=== PATIENT | female | born 1950 | race Caucasian/White ===

== ENCOUNTER 2022-12-26 18:04 | Outpatient (CLI) | payer MEDICARE, MEDICAID | END 2022-12-26 18:05 | disposition critical access hospital (66) | LOC: EMS 18:04 | DX: R55 Syncope and collapse (principal); I95.9 Hypotension, unspecified; R41.0 Disorientation, unspecified; R39.89 Other symptoms and signs involving the genitourinary system | CPT/HCPCS: A0425; A0427 ==

== ENCOUNTER 2022-12-26 18:21 | Emergency (ER) | payer MEDICARE, MEDICAID ==
[2022-12-26 19:12] LABS: BASOPHILS # (AUTO) 0.1 10^3/uL (0.0-0.1); BASOPHILS % (AUTO) 0.7 %; EOSINOPHILS # (AUTO) 0.1 10^3/uL (0.0-0.7); EOSINOPHILS % (AUTO) 1.6 %; HGB - HEMOGLOBIN 12.7 g/dL (12.0-16.0); LYMPHOCYTES # (AUTO) 2.6 10^3/uL (1.5-3.5); LYMPHOCYTES % (AUTO) 30.9 %; MEAN CORPUSCULAR HEMOGLOBIN 27.9 pg (27.0-31.0); MEAN CORPUSCULAR HGB CONC 31.8 g/dL (32.0-36.0); MEAN CORPUSCULAR VOLUME 87.9 fL (81.0-99.0); MEAN PLATELET VOLUME 8.9 fL (7.9-10.8); MONOCYTES # (AUTO) 0.7 10^3/uL (0.0-1.0); NEUTROPHILS % (AUTO) 58.4 %; PLT - PLATELET COUNT 272 10^3/uL (130-450); RED BLOOD COUNT 4.55 10^6/uL (4.20-5.40); RED CELL DISTRIBUTION WIDTH 13.6 % (12.0-15.0); WHITE BLOOD COUNT 8.5 x10^3/uL (4.8-10.8)
[2022-12-26 19:25] LABS: ALBUMIN 3.6 g/dL (3.2-5.5); ALBUMIN/GLOBULIN RATIO 1.3 (1.0-2.2); BILIRUBIN,TOTAL 0.4 mg/dL (0.2-1.0); CALCIUM 8.7 mg/dL (8.5-10.3); CREATININE 1.2 mg/dL (0.4-1.0); POTASSIUM 3.7 mmol/L (3.5-5.0); TOTAL PROTEIN 6.4 g/dL (6.7-8.2)
--- NOTE | 2022-12-26 19:29 | ED Physician Documentation ---
History of Present Illness - Stated complaint Stated Complaint: SYNCOPE - Chief complaint Chief Complaint: General - History obtained from History obtained from: Patient, EMS - History of Present Illness Timing: Today Pain level max: 0 Pain level now: 0 - Additonal information Additional information: 72-year-old female presents to the emergency department after reported possible syncopal event today at her memory care facility. She has severe dementia and is unable to give any history. Reportedly she was at dinner today and had her head on the table. It was unclear if she had passed out or if she was asleep. Reportedly a blood sugar was checked and it soon as her finger was poked she woke up abruptly. Patient states she does not have any injuries. Denies any history of syncope. No fevers. Patient is unable to give any significant history. Review of Systems Unable to obtain: Dementia PD PAST MEDICAL HISTORY - Past Medical History Past Medical History: Yes Neuro: Dementia - Allergies Allergies/Adverse Reactions: Allergies Allergy/AdvReac Type Severity Reaction Status Date / Time codeine Allergy Unknown Verified 12/26/22 18:38 fentanyl Allergy Unknown Verified 12/26/22 18:38 hydrocodone Allergy Unknown Verified 12/26/22 18:38 lorazepam Allergy Unknown Verified 12/26/22 18:38 morphine Allergy Unknown Verified 12/26/22 18:38 prochlorperazine Allergy Unknown Verified 12/26/22 18:38 tizanidine Allergy Unknown Verified 12/26/22 18:38 PD ED PE NORMAL - Vitals Vital signs reviewed: Yes - General General: No acute distress, Well developed/nourished, Other (Alert, happy, well-appearing) - HEENT HEENT: Atraumatic, PERRL, Moist mucous membranes, Pharynx benign - Neck Neck: Supple, no meningeal sign, No bony TTP - Cardiac Cardiac: RRR, Strong equal pulses - Respiratory Respiratory: No respiratory distress, Clear bilaterally - Abdomen Abdomen: Soft, Non tender, Non distended - Back Back: No spinal TTP - Derm Derm: Warm and dry - Extremities Extremities: No edema, No calf tenderness / cord - Neuro Neuro: unified communications engineer 2-12 intact, No motor deficit, No sensory deficit, Normal speech Eye Opening: Spontaneous Motor: Obeys Commands Verbal: Confused (baseline) GCS Score: 14 - Psych Psych: Normal mood, Normal affect Results - Vitals Vitals: Vital Signs - 24 hr 12/26/22 12/26/22 18:28 20:53 Temperature 98.1 C H Heart Rate 67 73 Respiratory 16 18 Rate Blood Pressure 123/79 120/71 O2 Saturation 97 98 Oxygen O2 Source Room air - EKG (time done) 1831 EKG releavant findings:: EKG personally interpreted by author of this note. Relevant findings are: Rate: Rate (enter#) (81) Rhythm: Atrial fibrillation QRS: Normal Ischemia: Normal ST segments - Labs Labs: Laboratory Tests 12/26/22 12/26/22 12/26/22 18:29 19:07 19:07 WBC 8.5 RBC 4.55 Hgb 12.7 Hct 40.0 MCV 87.9 MCH 27.9 MCHC 31.8 L RDW 13.6 Plt Count 272 MPV 8.9 Neut # (Auto) 5.0 Lymph # (Auto) 2.6 [place] # (Auto) 0.7 Eos # (Auto) 0.1 Baso # (Auto) 0.1 Absolute Nucleated RBC 0.00 Nucleated RBC % 0.0 Sodium 138 Potassium 3.7 Chloride 102 Carbon Dioxide 26 Anion Gap 10.0 BUN 21 H Creatinine 1.2 H Estimated GFR (MDRD) 44 L Glucose 142 H POC Whole Bld Glucose 137 H Calcium 8.7 Total Bilirubin 0.4 AST 18 ALT 15 Alkaline Phosphatase 62 Troponin I High Sens Total Protein 6.4 L Albumin 3.6 Globulin 2.8 Albumin/Globulin Ratio 1.3 Lipase 34 12/26/22 19:07 WBC RBC Hgb Hct MCV MCH MCHC RDW Plt Count MPV Neut # (Auto) Lymph # (Auto) [place] # (Auto) Eos # (Auto) Baso # (Auto) Absolute Nucleated RBC Nucleated RBC % Sodium Potassium Chloride Carbon Dioxide Anion Gap BUN Creatinine Estimated GFR (MDRD) Glucose POC Whole Bld Glucose Calcium Total Bilirubin AST ALT Alkaline Phosphatase Troponin I High Sens 5.1 Total Protein Albumin Globulin Albumin/Globulin Ratio Lipase - Rads (name of study) cxr Relevant Findings:: Final report received, See rad report PD Medical Decision Making - ED course Complexity details: reviewed results, re-evaluated patient, considered differential (No ST elevation [place], no aortic dissection, no PE, no tension pneumothorax, no aortic aneurysm), d/w family ED course: Patient is a 72-year-old female who potentially had a syncopal event earlier today. She may have also been napping at the dinner table. No injuries. Patient is unable to give any history. No acute findings on CBC or chemistry. No old labs are available. EKG is A-fib which is consistent with her history. No focal neurological deficits. Discussed the case with her daughter over the phone. We will have the patient follow-up with her PCP for further care. This document was made in part using voice recognition software. While efforts are made to proofread this document, sound alike and grammatical errors may occur. Departure - Departure Disposition: 01 Home, Self Care Clinical Impression: Syncope Qualifiers: Syncope type: unspecified Qualified Code(s): R55 - Syncope and collapse Condition: Good Instructions: ED Fainting Unkn Cause Follow-Up: [facility] [Provider Group] - Within 1 week Comments: Please follow-up with your primary care provider later this week. It appears that you had an episode of syncope today. The cause of this is unclear. You are in atrial fibrillation which is chronic for you. Your testing here is normal tonight. Your doctor may want to place a Holter monitor or Zio patch to monitor your heart rhythm for any arrhythmias. Please return if you worsen. I spoke with your daughter Kellie murphy. Discharge Date/Time: 12/26/22 20:53
[2022-12-26 20:55] VITALS: BP 120/71
== END 2022-12-26 20:53 | disposition home or self-care (01) ==
LOC: ED 18:21
DX: R55 Syncope and collapse (principal); F03.90 Unspecified dementia, unspecified severity, without behavioral disturbance, psychotic disturbance, mood disturbance, and anxiety
CPT/HCPCS: 36415; 80053; 83690; 84484; 85025; 93005; 99283; 99284

== ENCOUNTER 2022-12-26 21:05 | Outpatient (CLI) | payer MEDICARE, MEDICAID | END 2022-12-26 21:06 | disposition home or self-care (01) | LOC: EMS 21:05 | PROVIDERS: ATTEND Emergency Medicine | DX: R55 Syncope and collapse (principal); I95.9 Hypotension, unspecified; R53.83 Other fatigue; F03.90 Unspecified dementia, unspecified severity, without behavioral disturbance, psychotic disturbance, mood disturbance, and anxiety | CPT/HCPCS: A0425; A0428 ==

== ENCOUNTER 2023-11-27 12:22 | Outpatient (CLI) | payer MEDICARE, MEDICAID | END 2023-11-27 23:59 | disposition critical access hospital (66) | LOC: EMS 12:22 | DX: M25.552 Pain in left hip (principal); Z74.09 Other reduced mobility; W18.39XA Other fall on same level, initial encounter; Y92.099 Unspecified place in other non-institutional residence as the place of occurrence of the external cause | CPT/HCPCS: A0425; A0429 ==

== ENCOUNTER 2023-11-27 12:58 | Emergency (ER) | payer MEDICARE, MEDICAID ==
[2023-11-27 13:24] VITALS: BP 118/77; O2SAT 96
--- NOTE | 2023-11-27 13:53 | ED Physician Documentation ---
PD HPI LOWER EXT INJURY - Stated complaint Stated Complaint: LT HIP PX - Chief complaint Chief Complaint: Ext Problem - History obtained from History obtained from: Patient, EMS - Additional information Additional information: The patient is sent to the emergency department by EMS for chief complaint of hip pain. The patient cannot specify which hip is hurting although the medics report that it is the left hip. The patient apparently took a fall back on November 18 but was able to get up with assistance and then was able to ambulate without difficulty. However, it seems that since then, the patient has complained more and more of pain in that area and so [facility], where she lives, finally sent her in. The patient is not really able to offer any meaningful information as she has advanced dementia. [facility] does not report any further injuries in the fall and patient has otherwise been acting like herself. PD PAST MEDICAL HISTORY - Past Medical History Past Medical History: Yes Cardiovascular: Hypertension, Atrial fibrillation Neuro: Dementia GI: GERD : Incontinence Psych: Anxiety Musculoskeletal: Osteoporosis, Chronic back pain - Present Medications Home Medications: Ambulatory Orders Medication Instructions Recorded Confirmed Cholecalciferol [Vitamin D3] 5,000 unit PO DAILY 11/27/23 11/27/23 Donepezil [Aricept] 10 mg PO DAILY 11/27/23 11/27/23 Loratadine [Claritin] 10 mg PO DAILY 11/27/23 11/27/23 Losartan Potassium 50 mg PO DAILY 11/27/23 11/27/23 Metoprolol Tartrate [Lopressor] 25 mg PO DAILY 11/27/23 11/27/23 Multivit with Iron,Minerals 1 each PO DAILY 11/27/23 11/27/23 [Multivitamins with Iron] Omeprazole 40 mg PO DAILY 11/27/23 11/27/23 Rivaroxaban [Xarelto] 20 mg PO DAILY 11/27/23 11/27/23 amLODIPine [Norvasc] 5 mg PO DAILY 11/27/23 11/27/23 buPROPion HCL [Bupropion Xl] 150 mg PO DAILY 11/27/23 11/27/23 traMADol [Ultram] 50 mg PO BID 11/27/23 11/27/23 - Allergies Allergies/Adverse Reactions: Allergies Allergy/AdvReac Type Severity Reaction Status Date / Time codeine Allergy Unknown Verified 11/27/23 13:16 fentanyl Allergy Unknown Verified 11/27/23 13:16 hydrocodone Allergy Unknown Verified 11/27/23 13:16 lorazepam Allergy Unknown Verified 11/27/23 13:16 morphine Allergy Unknown Verified 11/27/23 13:16 prochlorperazine Allergy Unknown Verified 11/27/23 13:16 tizanidine Allergy Unknown Verified 11/27/23 13:16 - Social History Does the pt smoke?: No Smoking Status: Never smoker Does the pt drink ETOH?: No Does the pt have substance abuse?: No - Immunizations Immunizations are current?: Yes - POLST Patient has POLST: Yes PD ED PE NORMAL - Vitals Vital signs reviewed: Yes - General General: No acute distress, Well developed/nourished, Other (Alert, pleasant) - HEENT HEENT: Atraumatic, PERRL, EOMI, Moist mucous membranes - Neck Neck: Supple, no meningeal sign - Respiratory Respiratory: No respiratory distress - Derm Derm: Normal color, Warm and dry, No rash - Extremities Extremities: No deformity, Other (No shortening or rotation of either lower extremity. Patient has full passive range of motion of her bilateral lower extremities without pain. She does complain of some pain when I push down and put lateral pressure on her pelvis, but cannot specify exactly where it hurts.) - Neuro Neuro: Other (Alert, moving all 4 extremities without difficulty. Knows her name.) - Psych Psych: Normal mood, Normal affect Results - Vitals Vitals: Oxygen O2 Source Room air - Rads (name of study) bilateral hips/pelvis XR Relevant Findings:: Final report received, See rad report (neg) PD Medical Decision Making - ED course Complexity details: reviewed results, re-evaluated patient, considered differential, d/w patient ED course: The patient had very minor findings on physical exam, with full ROM of both hips actively and passively. Given that she had been sent in with report of increased pain with ambulation since her fall, and given that she had some pelvic tenderness, I did order an x-ray series (bilateral hips, since pt was not a clear historian), and this was negative. The pt was able to ambulate and change positions from stretcher to chair without difficulty in the ED. I felt she was stable for d/c home. We have discussed symptomatic management at home, as well as the usual indications for return. Departure - Departure Disposition: 01 Home, Self Care Clinical Impression: Strain of hip Qualifiers: Encounter type: initial encounter Laterality: unspecified laterality Qualified Code(s): S76.019A - Strain of muscle, fascia and tendon of unspecified hip, initial encounter Condition: Stable Instructions: ED Sprain Hip Comments: Tarsha could not tell us which hip was hurting, and both hips had a completely normal exam. We did x-rays of both hips as well as the pelvis and no fracture was identified by the radiologist. Most likely, Tarsha has sprained or strained the tissues associated with 1 or the other of her hips when she fell a couple of weeks ago. There is no evidence of a serious orthopedic injury. You may give her ibuprofen and/or Tylenol as needed for the pain. She may follow-up with her primary doctor as needed. Forms: PCP List Discharge Date/Time: 11/27/23 17:40
--- NOTE | 2023-11-27 14:33 | XRAY Report ---
PROCEDURE: Hips w/Pelvis 2-3V BL INDICATIONS: bilateral hip pain after fall TECHNIQUE: 3 view(s) of the hip were acquired. COMPARISON: None FINDINGS: Bones: No fractures or dislocations. No suspicious bony lesions. The visualized pelvic ring appear s intact. Lumbar fusion is present. Soft tissues: No suspicious soft tissue calcifications or masses. IMPRESSION: Limited lateral view secondary to patient body habitus. No visualized acute fracture or dislocation. However, occult injury cannot be excluded. Recommend kandi rt interval imaging follow-up in 7-10 days as clinically indicated for additional evaluation. Reviewed by: Lucila Andujar MD on 11/27/2023 2:31 PM PST Approved by: Lucila Andujar MD on 11/27/2023 2:31 PM PST Station ID: [id number]
== END 2023-11-27 17:40 | disposition home or self-care (01) ==
LOC: EDUNIT# → EDBD → ED 12:58
DX: S76.012A Strain of muscle, fascia and tendon of left hip, initial encounter (principal); W18.39XA Other fall on same level, initial encounter; I10 Essential (primary) hypertension; I48.91 Unspecified atrial fibrillation; F03.90 Unspecified dementia, unspecified severity, without behavioral disturbance, psychotic disturbance, mood disturbance, and anxiety; M81.0 Age-related osteoporosis without current pathological fracture; Z79.01 Long term (current) use of anticoagulants; Z79.899 Other long term (current) drug therapy
CPT/HCPCS: 99283

== ENCOUNTER 2023-11-27 17:38 | Outpatient (CLI) | payer MEDICARE, MEDICAID | END 2023-11-27 23:59 | disposition home or self-care (01) | LOC: EMS 17:38 | PROVIDERS: ATTEND Emergency Medicine | DX: R41.0 Disorientation, unspecified (principal); F03.90 Unspecified dementia, unspecified severity, without behavioral disturbance, psychotic disturbance, mood disturbance, and anxiety | CPT/HCPCS: A0425; A0428 ==

== ENCOUNTER 2024-01-11 09:55 | Outpatient (CLI) | payer MEDICARE, MEDICAID | END 2024-01-11 23:59 | disposition critical access hospital (66) | LOC: EMS 09:55 | DX: R56.9 Unspecified convulsions (principal); Z79.01 Long term (current) use of anticoagulants | CPT/HCPCS: A0425; A0429 ==

== ENCOUNTER 2024-01-11 10:16 | Emergency (ER) | payer MEDICARE, MEDICAID ==
[2024-01-11 10:36] LABS: BASOPHILS # (AUTO) 0.1 10^3/uL (0.0-0.1); BASOPHILS % (AUTO) 0.8 %; EOSINOPHILS # (AUTO) 0.1 10^3/uL (0.0-0.7); EOSINOPHILS % (AUTO) 1.7 %; HCT - HEMATOCRIT 44.5 % (37.0-47.0); LYMPHOCYTES # (AUTO) 2.3 10^3/uL (1.5-3.5); LYMPHOCYTES % (AUTO) 29.2 %; MEAN CORPUSCULAR HEMOGLOBIN 29.6 pg (27.0-31.0); MEAN CORPUSCULAR HGB CONC 31.5 g/dL (32.0-36.0); MEAN CORPUSCULAR VOLUME 94.1 fL (81.0-99.0); MEAN PLATELET VOLUME 8.8 fL (7.9-10.8); MONOCYTES # (AUTO) 0.6 10^3/uL (0.0-1.0); MONOCYTES % (AUTO) 7.4 %; NEUTROPHILS # (AUTO) 4.7 10^3/uL (1.5-6.6); NEUTROPHILS % (AUTO) 60.4 %; PLT - PLATELET COUNT 247 10^3/uL (130-450); RED BLOOD COUNT 4.73 10^6/uL (4.20-5.40); RED CELL DISTRIBUTION WIDTH 13.5 % (12.0-15.0); WHITE BLOOD COUNT 7.8 x10^3/uL (4.8-10.8)
--- NOTE | 2024-01-11 10:36 | XRAY Report ---
PROCEDURE: Chest 1V INDICATIONS: chest pain TECHNIQUE: One view of the chest was acquired. COMPARISON: None. FINDINGS: Surgical changes and devices: None. Lungs and pleura: No pleural effusions or pneumothorax. Lungs are clear. Mediastinum: Mediastinal contours appear normal. Heart size is normal. Bones and chest wall: No suspicious bony lesions. Overlying soft tissues appear unremarkable. IMPRESSION: No acute pulmonary process noted. Reviewed by: Felix Ruiz MD on 01/11/2024 10:35 AM PDT Approved by: Felix Ruiz MD on 01/11/2024 10:35 AM PDT Station ID: [id number]
--- NOTE | 2024-01-11 10:45 | ED Physician Documentation ---
PD HPI SEIZURE - Stated complaint Stated Complaint: SZ - Chief complaint Chief Complaint: Neuro - History obtained from History obtained from: Family, EMS - History of Present Illness Timing - onset: Today Number of seizures: Single Description of seizure activity: Generalized Injury during seizure: None Associated symptoms: Unknown History of seizures: First seizure Contributing factors: Other (advanced dementia) Similar symptoms before: Has not had sx before Recently seen: Not recently seen - Additional information Additional information: 73-year-old Tarsha Ribera has a history of advanced dementia. This morning she is brought to the hospital by ambulance after staff witnessed a tonic-clonic seizure lasting about 5 minutes. The patient has now returned to her baseline. She is unable to provide any specific history. She does not have a prior history of seizure disorder. She is not able to fully cooperate with an exam. She does not have focal neurodeficit observed. Review of Systems Unable to obtain: Dementia PD PAST MEDICAL HISTORY - Past Medical History Cardiovascular: Hypertension, Atrial fibrillation Neuro: Dementia GI: GERD : Incontinence Psych: Anxiety Musculoskeletal: Osteoporosis, Chronic back pain - Present Medications Home Medications: Ambulatory Orders Medication Instructions Recorded Confirmed Cholecalciferol [Vitamin D3] 5,000 unit PO DAILY 11/27/23 01/11/24 Donepezil [Aricept] 10 mg PO DAILY 11/27/23 01/11/24 Loratadine [Claritin] 10 mg PO DAILY 11/27/23 01/11/24 Losartan Potassium 50 mg PO DAILY 11/27/23 01/11/24 Metoprolol Tartrate [Lopressor] 25 mg PO DAILY 11/27/23 01/11/24 Multivit with Iron,Minerals 1 each PO DAILY 11/27/23 01/11/24 [Multivitamins with Iron] Omeprazole 40 mg PO DAILY 11/27/23 01/11/24 Rivaroxaban [Xarelto] 20 mg PO DAILY 11/27/23 01/11/24 amLODIPine [Norvasc] 5 mg PO DAILY 11/27/23 01/11/24 buPROPion HCL [Bupropion Xl] 150 mg PO DAILY 11/27/23 01/11/24 traMADol [Ultram] 50 mg PO BID 11/27/23 01/11/24 - Allergies Allergies/Adverse Reactions: Allergies Allergy/AdvReac Type Severity Reaction Status Date / Time codeine Allergy Unknown Verified 01/11/24 10:46 fentanyl Allergy Unknown Verified 01/11/24 10:46 hydrocodone Allergy Unknown Verified 01/11/24 10:46 lorazepam Allergy Unknown Verified 01/11/24 10:46 morphine Allergy Unknown Verified 01/11/24 10:46 prochlorperazine Allergy Unknown Verified 01/11/24 10:46 tizanidine Allergy Unknown Verified 01/11/24 10:46 - Social History Does the pt smoke?: No Smoking Status: Never smoker Does the pt drink ETOH?: No Does the pt have substance abuse?: No - Immunizations Immunizations are current?: Yes - POLST Patient has POLST: Yes PD ED PE NORMAL - Vitals Vital signs reviewed: Yes (Hypertensive) - General General: No acute distress, Well developed/nourished, Other (The patient appears cooperative but has a blank stare. She is unable to cooperate with history in any way and she has a difficult time following commands.) - HEENT HEENT: Atraumatic, PERRL, EOMI - Neck Neck: Supple, no meningeal sign, No bony TTP - Cardiac Cardiac: RRR, No murmur - Respiratory Respiratory: No respiratory distress, Clear bilaterally - Abdomen Abdomen: Normal bowel sounds, Soft, Non tender, Non distended, No organomegaly - Back Back: No CVA TTP, No spinal TTP - Derm Derm: Normal color, Warm and dry, No rash - Extremities Extremities: No deformity, No edema - Neuro Neuro: regulatory lead 2-12 intact, No motor deficit, No sensory deficit, Normal speech Eye Opening: Spontaneous Motor: Localizes to Pain Verbal: Confused GCS Score: 13 - Psych Psych: Normal mood, Normal affect Results - Vitals Vitals: Vital Signs - 24 hr 01/11/24 01/11/24 10:21 12:27 Temperature 35.8 C L 36.5 C Heart Rate 89 88 Respiratory 13 14 Rate Blood Pressure 142/92 H 138/88 H O2 Saturation 96 98 Oxygen O2 Source Room air - Labs Labs: Laboratory Tests 01/11/24 01/11/24 01/11/24 10:32 10:32 10:32 WBC 7.8 RBC 4.73 Hgb 14.0 Hct 44.5 MCV 94.1 MCH 29.6 MCHC 31.5 L RDW 13.5 Plt Count 247 MPV 8.8 Neut # (Auto) 4.7 Lymph # (Auto) 2.3 [place] # (Auto) 0.6 Eos # (Auto) 0.1 Baso # (Auto) 0.1 Absolute Nucleated RBC 0.00 Nucleated RBC % 0.0 Sodium 136 Potassium 4.1 Chloride 102 Carbon Dioxide 25 Anion Gap 9.0 BUN 17 Creatinine 0.8 Estimated GFR (MDRD) 70 L Glucose 105 H Lactic Acid 2.7 H Calcium 9.7 Total Bilirubin 0.5 AST 15 ALT 10 Alkaline Phosphatase 77 Total Protein 6.8 Albumin 4.1 Globulin 2.7 Albumin/Globulin Ratio 1.5 Lipase 15 Urine Color Urine Clarity Urine pH Ur Specific [place] Urine Protein Urine Glucose (UA) Urine Ketones Urine Occult Blood Urine Nitrite Urine Bilirubin Urine Urobilinogen Ur Leukocyte Esterase Ur Microscopic Review Urine Culture Comments 01/11/24 11:30 WBC RBC Hgb Hct MCV MCH MCHC RDW Plt Count MPV Neut # (Auto) Lymph # (Auto) [place] # (Auto) Eos # (Auto) Baso # (Auto) Absolute Nucleated RBC Nucleated RBC % Sodium Potassium Chloride Carbon Dioxide Anion Gap BUN Creatinine Estimated GFR (MDRD) Glucose Lactic Acid Calcium Total Bilirubin AST ALT Alkaline Phosphatase Total Protein Albumin Globulin Albumin/Globulin Ratio Lipase Urine Color YELLOW Urine Clarity CLEAR Urine pH 7.5 Ur Specific [place] 1.020 Urine Protein NEGATIVE Urine Glucose (UA) NEGATIVE Urine Ketones NEGATIVE Urine Occult Blood NEGATIVE Urine Nitrite NEGATIVE Urine Bilirubin NEGATIVE Urine Urobilinogen 0.2 (NORMAL) Ur Leukocyte Esterase NEGATIVE Ur Microscopic Review NOT INDICATED Urine Culture Comments NOT INDICATED - Rads (name of study) CT head Relevant Findings:: Prelim report reviewed (Impression: No acute intracranial pathology.), EMP independent interpretation of test Chest Relevant Findings:: Prelim report reviewed (Impression: No acute pulmonary proce ss noted.), EMP independent interpretation of test PD Medical Decision Making - ED course Complexity details: reviewed results, re-evaluated patient, considered differential, d/w family Reviewed Lab Results: We reviewed a complete blood count showing a normal white blood cell count normal pleat hemoglobin hematocrit and platelets with normal indices. Chemistry showed normal electrolytes and normal kidney and liver function. Lactate was elevated at 2.7 a urinalysis was unremarkable. I interpreted these laboratory test to indicate the patient likely has had a seizure as her lactic acid was elevated and there are no other reasons by history or laboratory that she should have an elevated lactate. ED course: Tarsha Ribera with a history of advanced dementia has had a seizure today. We did obtain CT scan of the head and blood work without specific findings. She appears to have recovered spontaneously and is interacting normally with her partner. She does have advanced dementia and she is unable to contribute at all to the history. We will treat the patient conservatively and await a second seizure before attempting treatment. Departure - Departure Disposition: 01 Home, Self Care Clinical Impression: Seizure Condition: Stable Instructions: ED Seizure New Onset Unk Cause Follow-Up: Your, doctor [Other] Comments: Today it looks like Tarsha had a seizure and she had no significant "postictal " period. The postictal period is a period of time after a seizure where someone is unconscious for a period of time a short postictal period usually indicates a more benign seizure. We did not discover the reason for her seizure. When we have a first-time seizure and we do not discover the reason for this we will typically not treat. If she has a second seizure we will consider treatment then. She will need to be on seizure precaution. This includes no bathing in a bathtub no climbing on ladders or roofs no driving. I suspect she is not doing any of these things currently.A follow-up with her primary care doctor is indicated. Forms: PCP List Discharge Date/Time: 01/11/24 12:30
[2024-01-11 10:51] LABS: ALBUMIN 4.1 g/dL (3.2-5.5); ALBUMIN/GLOBULIN RATIO 1.5 (1.0-2.2); BILIRUBIN,TOTAL 0.5 mg/dL (0.2-1.0); CALCIUM 9.7 mg/dL (8.5-10.3); CREATININE 0.8 mg/dL (0.6-1.3); POTASSIUM 4.1 mmol/L (3.5-4.5); TOTAL PROTEIN 6.8 g/dL (6.4-8.9)
--- NOTE | 2024-01-11 10:58 | CT Report ---
PROCEDURE: Head WO INDICATIONS: seizure TECHNIQUE: Noncontrast 4.5 mm thick angled axial sections acquired from the foramen magnum to the vertex. For r adiation dose reduction, the following was used: automated exposure control, adjustment of mA and/or kV according to patient size. COMPARISON: None. FINDINGS: Image quality: Excellent. CSF spaces: Basal cisterns are patent. No extra-axial fluid collections. Ventricles are normal in size and shape. Brain: No midline shift. No intracranial masses or hemorrhage. Yoon-white matter interface is norm al. There is age-related volume loss and mild/mod/severe periventricular white matter change consist ent with small vessel ischemic change. Skull and face: Calvarium and visualized facial bones are intact, without suspicious lesions. Sinuses: Visualized sinuses and mastoids are clear. IMPRESSION: No acute intracranial pathology. Reviewed by: Felix Ruiz MD on 01/11/2024 10:56 AM PDT Approved by: Felix Ruiz MD on 01/11/2024 10:56 AM PDT Station ID: [id number]
[2024-01-11 11:41] LABS: BILIRUBIN,URINE NEGATIVE (NEGATIVE); GLUCOSE, URINE (UA) NEGATIVE (NEGATIVE); KETONES,URINE (UA) NEGATIVE (NEGATIVE); LEUKOCYTE ESTERASE, URINE NEGATIVE (NEGATIVE); NITRITE,URINE NEGATIVE (NEGATIVE); OCCULT BLOOD,URINE NEGATIVE (NEGATIVE); PH,URINE 7.5 PH (5.0-7.5); PROTEIN,URINE NEGATIVE (NEGATIVE); UROBILINOGEN,URINE 0.2 (NORMAL) E.U./dL (NORMAL)
[2024-01-11 11:42] LABS: CLARITY,URINE CLEAR (CLEAR)
[2024-01-11 12:36] VITALS: BP 138/88; O2SAT 98
== END 2024-01-11 12:30 | disposition home or self-care (01) ==
LOC: EDUNIT# → ED 10:16
DX: R56.9 Unspecified convulsions (principal); I10 Essential (primary) hypertension; I48.91 Unspecified atrial fibrillation; F03.90 Unspecified dementia, unspecified severity, without behavioral disturbance, psychotic disturbance, mood disturbance, and anxiety; Z79.01 Long term (current) use of anticoagulants; Z79.899 Other long term (current) drug therapy
CPT/HCPCS: 36415; 80053; 81001; 81003; 83605; 83690; 85025; 87086; 99284

== ENCOUNTER 2024-04-11 11:46 | Outpatient (CLI) | payer MEDICARE, MEDICAID | END 2024-04-11 23:59 | disposition critical access hospital (66) | LOC: EMS 11:46 | DX: R56.9 Unspecified convulsions (principal); I48.91 Unspecified atrial fibrillation; I95.9 Hypotension, unspecified; Z91.81 History of falling | CPT/HCPCS: A0425; A0427 ==

== ENCOUNTER 2024-06-18 11:56 | Outpatient (CLI) | payer MEDICARE, MEDICAID | END 2024-06-18 23:59 | disposition critical access hospital (66) | LOC: EMS 11:56 | DX: S00.83XA Contusion of other part of head, initial encounter (principal); W06.XXXA Fall from bed, initial encounter; Y92.092 Bedroom in other non-institutional residence as the place of occurrence of the external cause; R22.0 Localized swelling, mass and lump, head; I48.91 Unspecified atrial fibrillation; Z79.01 Long term (current) use of anticoagulants | CPT/HCPCS: A0425; A0429 ==

== ENCOUNTER 2024-06-18 12:18 | Emergency (ER) | payer MEDICARE, MEDICAID ==
[2024-06-18 12:41] VITALS: O2SAT 100
--- NOTE | 2024-06-18 12:44 | ED Physician Documentation ---
PD HPI HEAD INJURY - Stated complaint Stated Complaint: GLF - Chief complaint Chief Complaint: Trauma Hd/Nk - History obtained from History obtained from: Family - Additional information Additional information: This is a david 73-year-old woman who is on Xarelto for A-fib. She is demented and history is from her partner Angelita. She presents by ambulance. She lives at [facility] and apparently at some point overnight probably fell and hit her head on the floor. Also has a small bruise on the right knee but has been ambulatory without issue despite that. No history is available from the patient due to her dementia but she is at her "baseline" according to her partner. PD PAST MEDICAL HISTORY - Past Medical History Cardiovascular: Hypertension, Atrial fibrillation Neuro: Dementia GI: GERD : Incontinence Psych: Anxiety Musculoskeletal: Osteoporosis, Chronic back pain - Present Medications Home Medications: Ambulatory Orders Medication Instructions Recorded Confirmed Cholecalciferol [Vitamin D3] 5,000 unit PO DAILY 11/27/23 04/11/24 Donepezil [Aricept] 10 mg PO DAILY 11/27/23 04/11/24 Loratadine [Claritin] 10 mg PO DAILY 11/27/23 04/11/24 Losartan Potassium 50 mg PO DAILY 11/27/23 04/11/24 Metoprolol Tartrate [Lopressor] 25 mg PO DAILY 11/27/23 04/11/24 Multivit with Iron,Minerals 1 each PO DAILY 11/27/23 04/11/24 [Multivitamins with Iron] Omeprazole 40 mg PO DAILY 11/27/23 04/11/24 Rivaroxaban [Xarelto] 20 mg PO DAILY 11/27/23 04/11/24 amLODIPine [Norvasc] 5 mg PO DAILY 11/27/23 04/11/24 buPROPion HCL [Bupropion Xl] 450 mg PO DAILY 11/27/23 04/11/24 traMADol [Ultram] 50 mg PO BID 11/27/23 04/11/24 ARIPiprazole [Abilify Mycite] 2 mg PO HS 04/11/24 04/11/24 Memantine [Namenda] 5 mg PO HS 04/11/24 04/11/24 levETIRAcetam [Keppra] 500 mg PO BID #60 tablet 04/11/24 - Allergies Allergies/Adverse Reactions: Allergies Allergy/AdvReac Type Severity Reaction Status Date / Time codeine Allergy Unknown Verified 06/18/24 12:35 fentanyl Allergy Unknown Verified 06/18/24 12:35 hydrocodone Allergy Unknown Verified 06/18/24 12:35 lorazepam Allergy Unknown Verified 06/18/24 12:35 morphine Allergy Unknown Verified 06/18/24 12:35 prochlorperazine Allergy Unknown Verified 06/18/24 12:35 tizanidine Allergy Unknown Verified 06/18/24 12:35 - Social History Does the pt smoke?: No Smoking Status: Never smoker Does the pt drink ETOH?: No Does the pt have substance abuse?: No - Immunizations Immunizations are current?: Yes - POLST Patient has POLST: Yes PD ED PE NORMAL - Vitals Vital signs reviewed: Yes - General General: No acute distress, Other (Third and oriented to person but not place or time. She is unable to give any particular history, when she talks it is very tangential.) - HEENT HEENT: PERRL, EOMI, Other (Bruising of the left supraorbital area without tenderness.) - Neck Neck: Supple, no meningeal sign, No bony TTP - Cardiac Cardiac: Other (Irregularly irregular) - Respiratory Respiratory: No respiratory distress - Abdomen Abdomen: Non tender - Back Back: No CVA TTP, No spinal TTP - Derm Derm: Normal color, Warm and dry - Extremities Extremities: Other (Anterior incision over the right knee with some medial bruising. Full range of motion that is painless and no tenderness though. 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 The head injury was on recollected but she is at her baseline with regard to her dementia per her partner. CT imaging of the head and neck was negative. Departure - Departure Disposition: 01 Home, Self Care Clinical Impression: Injury of head and neck Qualifiers: Encounter type: initial encounter Qualified Code(s): S09.90XA - Unspecified injury of head, initial encounter Condition: Good Record reviewed to determine appropriate education?: Yes Instructions: ED Head Injury Closed Forms: PCP List
--- NOTE | 2024-06-18 13:31 | CT Report ---
PROCEDURE: Head WO INDICATIONS: head inj TECHNIQUE: Noncontrast 4.5 mm thick angled axial sections acquired from the foramen magnum to the vertex. For r adiation dose reduction, the following was used: automated exposure control, adjustment of mA and/or kV according to patient size. COMPARISON: 04/11/2024. FINDINGS: Image quality: Excellent. CSF spaces: Basal cisterns are patent. No extra-axial fluid collections. Ventricles are normal in size and shape. Brain: No midline shift. No intracranial masses or hemorrhage. Yoon-white matter interface is norm al. Intracranial carotid calcifications. Age-related volume loss and small vessel ischemic change. Skull and face: Calvarium and visualized facial bones are intact, without suspicious lesions. Sinuses: Visualized sinuses and mastoids are clear. IMPRESSION: No acute intracranial pathology. Reviewed by: Felix Ruiz MD on 06/18/2024 1:29 PM PDT Approved by: Felix Ruiz MD on 06/18/2024 1:29 PM PDT Station ID: [id number]
--- NOTE | 2024-06-18 13:32 | CT Report ---
PROCEDURE: Cervical Spine WO INDICATIONS: head inj TECHNIQUE: Noncontrast 3 mm thick sections acquired from the skull base to the T4 level. Sagittal and coronal r eformats were then constructed. For radiation dose reduction, the following was used: automated exp osure control, adjustment of mA and/or kV according to patient size. COMPARISON: None. FINDINGS: Image quality: Excellent. Bones: No fractures or dislocations. Visualized superior ribs are intact. Diffuse cervical spondyl itic change. Multilevel disc height loss and uncovertebral joint osteophytes. Probable mild canal lm nosis at C4-C5. Multilevel bony foraminal narrowing Soft tissues: Prevertebral soft tissues are normal in thickness. No paravertebral hematomas. No ap ical pneumothoraces. IMPRESSION: 1. Acute cervical fracture or dislocation. 2. Cervical spondylosis. Reviewed by: Felix Ruiz MD on 06/18/2024 1:31 PM PDT Approved by: Felix Ruiz MD on 06/18/2024 1:31 PM PDT Station ID: [id number]
[2024-06-18 14:22] VITALS: BP 127/73
== END 2024-06-18 14:09 | disposition home or self-care (01) ==
LOC: EDUNIT# → ED 12:18
DX: S09.90XA Unspecified injury of head, initial encounter (principal); S19.9XXA Unspecified injury of neck, initial encounter; W18.30XA Fall on same level, unspecified, initial encounter; Y92.129 Unspecified place in nursing home as the place of occurrence of the external cause; I10 Essential (primary) hypertension; I48.91 Unspecified atrial fibrillation; F03.90 Unspecified dementia, unspecified severity, without behavioral disturbance, psychotic disturbance, mood disturbance, and anxiety; Z79.899 Other long term (current) drug therapy; Z79.01 Long term (current) use of anticoagulants
CPT/HCPCS: 36415; 99283; 99284